=== PATIENT | female | born 1970 | race Caucasian/White ===

== ENCOUNTER 2017-04-13 01:05 | Emergency (ER) | payer OTHER ==
[~2017-04-13] VITALS: Ht 162.6 cm; Wt 65.8 kg
[~2017-04-13 01:05] MED LIST: ALEVE220 M1 PO; CAMILA0.35 MG PO; CELEXA 10 MG TA10 M1 PO; CIPRO500 MG PO; ONDANSETRON HCL4 M2 PO; PHENAZOPYRIDIN200 M2 PO; PRINIVIL10 MG PO
[2017-04-13 02:50] LABS: ABSOLUTE EOSINOPHILS 0.4 thou/uL (0.0-0.7); ABSOLUTE LYMPHOCYTES 1.5 thou/uL (0.8-5.3); ABSOLUTE MONOCYTES 0.8 thou/uL (0.0-1.2); ABSOLUTE NEUTROPHILS 4.2 thou/uL (1.6-8.1); BASOPHILS 0.7 %; EOSINOPHILS 6.1 %; HEMATOCRIT 39.1 % (37.0-47.0); HEMOGLOBIN 12.8 gm/dL (12.0-15.0); LYMPHOCYTES 21.7 %; MCH 34.4 pg (26.0-34.0); MCHC 32.7 g/dL (28.0-37.0); MCV 105.2 fL (80.0-100.0); MONOCYTES 11.1 %; NUCLEATED RBCS 0 /100WBC; PLATELET COUNT* 311 thou/uL (150-400); POLYS 60.4 %; RBC 3.72 mil/uL (4.20-5.00); RDW-CV 13.3 % (10.5-14.5)
[2017-04-13 02:51] LABS: CALCIUM 8.8 mg/dL (8.5-10.1); CREATININE 0.7 mg/dL (0.6-1.3)
[2017-04-13 02:58] LABS: URINE BILIRUBIN NEGATIVE (Negative); URINE BLOOD NEGATIVE (Negative); URINE CLARITY CLEAR; URINE COLOR STRAW; URINE GLUCOSE-RANDOM NEGATIVE (Negative); URINE KETONES NEGATIVE (Negative); URINE LEUKOCYTES-REFLEX NEGATIVE (Negative); URINE NITRITE-REFLEX NEGATIVE (Negative); URINE PROTEIN NEGATIVE (Negative); URINE UROBILINOGEN 0.2 E.U./dl (0.2-1.0)
[2017-04-13 03:26] LABS: ALBUMIN 3.7 g/dL (3.4-5.0); ALKALINE PHOSPHATASE 87 U/L (46-116); DIRECT BILIRUBIN < 0.1 mg/dL (<0.1-0.3); SGOT 24 U/L (15-37); SGPT 24 U/L (30-65); TOTAL BILIRUBIN 0.1 mg/dL (<0.1-1.0)
[2017-04-13] MEDS ORDERED: NORCO 7.5-3251 EACH PO (04:46)
[2017-04-13 05:00] VITALS: BP 132/49
== END 2017-04-13 05:00 | disposition home or self-care (01) ==
LOC: M.ERS 01:05
PROVIDERS: Emergency Medicine
DX: S20.20XA Contusion of thorax, unspecified, initial encounter (principal); I10 Essential (primary) hypertension; F32.9 Major depressive disorder, single episode, unspecified; Z88.2 Allergy status to sulfonamides; X58.XXXA Exposure to other specified factors, initial encounter; Y93.89 Activity, other specified; Y92.89 Other specified places as the place of occurrence of the external cause; Y99.8 Other external cause status

== ENCOUNTER 2017-08-17 14:05 | Emergency (ER) | payer OTHER ==
[~2017-08-17] VITALS: Ht 162.6 cm; Wt 72.6 kg
[~2017-08-17 14:05] MED LIST changes: +NORCO 7.5-3251 EACH PO
[2017-08-17 14:54] LABS: ABSOLUTE EOSINOPHILS 0.4 thou/uL (0.0-0.7); ABSOLUTE LYMPHOCYTES 1.2 thou/uL (0.8-5.3); ABSOLUTE MONOCYTES 0.4 thou/uL (0.0-1.2); ABSOLUTE NEUTROPHILS 2.1 thou/uL (1.6-8.1); BASOPHILS 0.9 %; HEMATOCRIT 41.1 % (37.0-47.0); HEMOGLOBIN 13.7 gm/dL (12.0-15.0); LYMPHOCYTES 28.9 %; MCH 34.1 pg (26.0-34.0); MCHC 33.3 g/dL (28.0-37.0); MCV 102.2 fL (80.0-100.0); MONOCYTES 10.2 %; MPV 6.7 fl. (7.2-11.1); NUCLEATED RBCS 0 /100WBC; PLATELET COUNT* 214 thou/uL (150-400); RBC 4.02 mil/uL (4.20-5.00); RDW-CV 15.2 % (10.5-14.5); WBC 4.1 thou/uL (4.0-11.0)
[2017-08-17 15:08] LABS: CALCIUM 8.9 mg/dL (8.5-10.1); CREATININE 0.7 mg/dL (0.6-1.3); POTASSIUM 3.7 mmol/L (3.5-5.1)
[2017-08-17 15:13] LABS: TOTAL BILIRUBIN 0.3 mg/dL (<0.1-1.0); TOTAL PROTEIN 7.4 g/dL (6.4-8.2)
[2017-08-17 15:18] LABS: URINE BILIRUBIN NEGATIVE (Negative); URINE BLOOD NEGATIVE (Negative); URINE CLARITY CLEAR; URINE COLOR YELLOW; URINE GLUCOSE-RANDOM NEGATIVE (Negative); URINE KETONES NEGATIVE (Negative); URINE LEUKOCYTES-REFLEX NEGATIVE (Negative); URINE NITRITE-REFLEX NEGATIVE (Negative); URINE PROTEIN NEGATIVE (Negative); URINE SPECIFIC GRAVITY <= 1.005 (1.005-1.030); URINE UROBILINOGEN 0.2 E.U./dl (0.2-1.0)
[2017-08-17 15:22] LABS: AMP/METHAMP Negative (Negative); BARBITURATES Negative (Negative); BENZODIAZEPINES Negative (Negative); COCAINE Negative (Negative); METHADONE Negative (Negative); OPIATES Negative (Negative); PCP Negative (Negative); THC Negative (Negative)
[2017-08-17 15:26] LABS: ALCOHOL 189 mg/dL (<10); SALICYLATE 3.5 mg/dL (2.8-20.0)
[2017-08-17 15:27] LABS: ACETAMINOPHEN < 2 ug/mL (10-30)
[2017-08-17 16:09] VITALS: BP 136/83
== END 2017-08-17 16:10 | disposition home or self-care (01) ==
LOC: M.ERS 14:05
PROVIDERS: Nurse Practitioner Family
DX: F10.99 Alcohol use, unspecified with unspecified alcohol-induced disorder (principal); I10 Essential (primary) hypertension; F32.9 Major depressive disorder, single episode, unspecified; Z88.2 Allergy status to sulfonamides

== ENCOUNTER 2020-06-04 07:37 | Emergency (ER) | payer OTHER ==
[~2020-06-04] VITALS: Ht 162.6 cm; Wt 63.5 kg
[2020-06-04 08:10] LABS: HEMATOCRIT 37.5 % (37.0-47.0); MCH 37.6 pg (26.0-34.0); MCHC 34.8 g/dL (28.0-37.0); MCV 108.1 fL (80.0-100.0); MPV 6.3 fl. (7.2-11.1); RBC 3.47 mil/uL (4.20-5.00); RDW-CV 14.5 % (10.5-14.5); WBC 4.3 thou/uL (4.0-11.0)
[2020-06-04 08:24] LABS: CALCIUM 8.5 mg/dL (8.5-10.1); CREATININE 0.6 mg/dL (0.6-1.3); POTASSIUM 4.4 mmol/L (3.5-5.1)
[2020-06-04 08:29] LABS: TOTAL BILIRUBIN 0.6 mg/dL (<0.1-1.0); TOTAL PROTEIN 7.7 g/dL (6.4-8.2)
[2020-06-04 08:51] LABS: URINE BILIRUBIN NEGATIVE (Negative); URINE BLOOD NEGATIVE (Negative); URINE CLARITY CLEAR; URINE COLOR YELLOW; URINE GLUCOSE-RANDOM NEGATIVE (Negative); URINE KETONES TRACE (Negative); URINE LEUKOCYTES TRACE (Negative); URINE NITRITE NEGATIVE (Negative); URINE PROTEIN NEGATIVE (Negative); URINE SPECIFIC GRAVITY <= 1.005 (1.005-1.030); URINE UROBILINOGEN 0.2 E.U./dl (0.2-1.0)
[2020-06-04 09:00] LABS: AMP/METHAMP Negative (Negative); BARBITURATES Negative (Negative); BENZODIAZEPINES Negative (Negative); COCAINE Negative (Negative); METHADONE Negative (Negative); OPIATES Negative (Negative); PCP Negative (Negative); THC Negative (Negative)
[2020-06-04 09:08] LABS: BACTERIA 1-9 Few /HPF (None Seen); SQUAMOUS 0-3 Few /LPF (0-3); URINE RBC 0-2 Rare /HPF (0-2); URINE WBC 0-5 Rare /HPF (0-5)
[2020-06-04 09:09] LABS: CASTS None Seen /LPF (None Seen); CRYSTALS None Seen /LPF (None Seen)
[2020-06-04 11:01] VITALS: BP 129/62
--- NOTE | 2020-06-04 14:27 | NUR ---
CM SPK WITH REGARDING INPATIENT DETOX. PT REFUSED INPATIENT SHE STATED SHE HAS DOG AND A 15 Y/O SON SHE NEEDS TO "GET SITUATED" PRIOR TO ADMITTING FOR DETOXIFICATION. CM ADVISED PT ON RISK INVOLVED WITH DETOX AND ENCOURAGED PT TO DO UNDER THE SUPERVISION OF DOCTOR. PT DTR, MANUEL, AT BESIDE, AND TRIED TO CONVINCE PT TO GET TX. MANUEL PROMISED PT SHE WOULD TEND TO THE NEEDS AT HOME. PT REFUSED. CM PROVIDE PT W/RESOURCES. CM NOTIFIED ED DOCTOR.
== END 2020-06-04 11:02 | disposition home or self-care (01) ==
LOC: M.ERS 07:37
PROVIDERS: Emergency Medicine
DX: F10.129 Alcohol abuse with intoxication, unspecified (principal); Y90.4 Blood alcohol level of 80-99 mg/100 ml; I10 Essential (primary) hypertension; F32.9 Major depressive disorder, single episode, unspecified; Z88.2 Allergy status to sulfonamides; Z79.899 Other long term (current) drug therapy